=== PATIENT | male | born 1960 ===

== ENCOUNTER 2022-06-17 11:15 | Outpatient (RCR) | payer MEDICARE, SELFPAY ==
[2022-05-20 12:15] VITALS: BMI 20.3
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
--- NOTE | 2022-05-26 15:12 | P.PNPSP_ITS ---
Subjective Subjective Date of Service: 05/26/22 Reason For Visit: MDD,WILLA Medical Problems Affecting Mental Status: No Interim History: Continues with dysphoric mood. Reports feeling depressed, isolated, disconnected . Denies SI/HI. Stopped BuSpar after 1 pill. Medication Compliance: Intermittent Side effects from medications: No Attending Groups: Yes Review of Systems Acute medical concerns: No Medical Review of Systems: unchanged Review of Systems Review of Systems Yes all other systems are reviewed and are negative Constitutional: Reports no additional constitutional complaints Mental Status Exam Mental Status Exam Narrative: NAD. No SI/HI. No tics or tremors, no abnormal movements. Patient Appearance: Well Grooomed and Appropriate Patient Orientation: Person, Place, Time and Situation Level of Consciousness: Appropriate Patient Behavior: Appropriate and Good Eye Contact Mood Description: Depressed Affect Description: Depressed and Angry (irritable. ) Patient Cognition Impaired: No Ability to Follow Directions: Good Speech Pattern: Appropriate Memory Description: Intact Hallucinations: None Delusions: Not Present Thought Process: Intact Thought Content: positive for Intact Depressive Symptoms: Increased Anxiety, Loss of Int. in Activity, Feelings of Guilt, Unhappiness and Increased Fatigue Judgement: Fair Diagnostics Vital Signs (24Hr): BMI result Body Mass Index 20.3 Assessment & Plan Assessment & Plan (1) Major depressive disorder, recurrent severe without psychotic features: Status: Acute Code(s): F33.2 - Major depressive disorder, recurrent severe without psychotic features Assessment and Plan: Continues with dysphoric mood. Reports feeling depressed, isolated, disconnected . Denies SI/HI, no safety concerns. Reports he has tried several different antidepressants, unable to find 1 that was effective and did not cause side effects. Has been taking mirtazapine 7.5 mg at night for sleep. Zoloft had been decreased recently to 50 mg due to side effects of tremors. We discussed possible medication changes. He stated that he is already taking 3 medications, and he does not like to feel overmedicated. I suggested possibility of TMS. He stated that he is not interested in this. He sees outpatient psychiatrist tomorrow, and will discuss any possible medication changes / treatment options with her. (2) WILLA (generalized anxiety disorder): Status: Acute Code(s): F41.1 - Generalized anxiety disorder Assessment and Plan: Stopped BuSpar after 1 pill. Plan 1. Continue with current [facility] plan of care. 2. Continue with current medication regimen as prescribed by outpatient psychiatric provider. 3. Follow-up as per protocol. Certification I certify that partial hospital treatment is medically necessary due to the symptoms and problems resulting from the patient's mental illness and the failure to treat the patient at the partial hospital level of care would likely result in the patient requiring inpatient psychiatric care which could not be prevented at a less intensive level of care. I spent minutes with the patient and/or on the patient floor today, greater than?50% of which was spent counseling/coordinating care. Discharge Plan Discharge Attending provider: Kyrie Ho Medications: No Action multivitamin Tablet 1 tab PO DAILY buspirone [BuSpar] 5 mg Tablet 5 mg PO BID Label Comments: Patient reports his prescriber recently prescribed Buspar 5 mg BID. ascorbic acid (vitamin C) 1,000 mg Tablet 1,000 mg PO DAILY sertraline [Zoloft] 25 mg Tablet 50 mg PO DAILY Label Comments: Patient stated his prescriber recently decreased from 75 mg to 50 mg daily. lorazepam 1 mg Tablet 1 mg PO BID PRN (Reason: Anxiety) mirtazapine 7.5 mg Tablet 7.5 mg PO BEDTIME Label Comments: Patient reports he has not started new medication his prescriber prescribed. Picked up 05/19/22 melatonin 5 mg Tablet 5 mg PO BEDTIME PRN (Reason: Insomnia) omeprazole magnesium [Prilosec OTC] 20 mg Tablet,Delayed Release (Dr/Ec) 20 mg PO DAILY Label Comments: Patient reports his Tube Turner told him to take for 14 days d/t GI sxs. Telehealth Telehealth Location of provider rendering services: practice address Location of patient: address on file Patient Identification confirmed using: Name, : Yes Telehealth method: video Patient verbally consented to treatment: Yes Patient verbally consented to billing insurance company: Yes Patient informed of any privacy concerns related to visit: Yes Minutes spent on Phone/Video with Pt.: 15
--- NOTE | 2022-05-27 14:34 | PC.NURSE ---
Called to speak with Kenneth about his dc plans and if he has any needs that I can help him with. He did not answer and I left a message.
--- NOTE | 2022-06-03 14:17 | PC.NURSE ---
i spoke with the client about his schedule. He is be off monday 06/04 and his last day will be 06/09
--- NOTE | 2022-06-07 12:11 | PM.EVENT ---
Event Note Date of Service: 06/07/22 Event Note: Patient had scheduled appt to meet with this provider at 12:00 noon today. He did not login to appointment. PHP RN notified.
--- NOTE | 2022-06-11 10:41 | PC.NURSE ---
I spoke with the client this morning. He had a difficult day yesterday and did not sleep last night. He feels that he is too tired to attend and needs to go back to bed. He states that he will be in on Tuesday.
--- NOTE | 2022-06-15 14:57 | P.PNPSP_ITS ---
Subjective Subjective Date of Service: 06/15/22 Reason For Visit: MDD,WILLA Medical Problems Affecting Mental Status: No Interim History: Reports mood slightly improved. No SI, HI, no safety concerns. Started taking Celexa 4 days ago, no side effects reported. Utilizing lorazepam at night, helps with sleep. Medication Compliance: Yes Side effects from medications: No Attending Groups: Yes Review of Systems Acute medical concerns: No Medical Review of Systems: unchanged Review of Systems Review of Systems Yes all other systems are reviewed and are negative Constitutional: Reports no additional constitutional complaints Mental Status Exam Mental Status Exam Narrative: Appointment held via telephone due to technical difficulties (did not receive link). NAD. No SI/HI. Patient Appearance: Well Grooomed and Appropriate Patient Orientation: Person, Place, Time and Situation Level of Consciousness: Appropriate Patient Behavior: Appropriate Mood Description: Depressed Affect Description: Flat (voice flat) Patient Cognition Impaired: No Ability to Follow Directions: Good Speech Pattern: Appropriate and Monotone Memory Description: Intact Hallucinations: None Delusions: Not Present Thought Process: Intact Thought Content: positive for Intact Depressive Symptoms: Increased Anxiety, Difficulty Sleeping (varies by night), Loss of Int. in Activity and Unhappiness Judgement: Good Judgement and Insight: Improved judgment and insight. Diagnostics Vital Signs (24Hr): BMI result Body Mass Index 20.3 Assessment & Plan Assessment & Plan (1) Major depressive disorder, recurrent severe without psychotic features: Status: Acute Code(s): F33.2 - Major depressive disorder, recurrent severe without psychotic features Assessment and Plan: Feels slight improvement in mood since starting PHP. Has started taking Celexa 4 days ago, no side effects reported. No SI/HI, no safety concerns. Some difficulty with sleep, utilizing lorazepam at night, which helps. (2) Dependent personality disorder: Status: Acute Code(s): F60.7 - Dependent personality disorder Assessment and Plan: Plans to return home to his own apartment from girlfriend's home, states he is trying to do this. (3) WILLA (generalized anxiety disorder): Status: Acute Code(s): F41.1 - Generalized anxiety disorder Assessment and Plan: Utilizing p.r.n. lorazepam, with some positive affect. Has had a med change recently, has started Celexa. Plan 1. Continue with current PHP plan of care. 2. Continue with current medication regimen as prescribed by outpatient prov ider. 3. Follow-up as per protocol. Patient educated on: diagnosis, medication risk/benefits and therapeutic strategies Reason for contiued partial hosp. stay Substantial Risk for: inability to function Certification I certify that partial hospital treatment is medically necessary due to the symptoms and problems resulting from the patient's mental illness and the failure to treat the patient at the partial hospital level of care would likely result in the patient requiring inpatient psychiatric care which could not be prevented at a less intensive level of care. I spent minutes with the patient and/or on the patient floor today, greater than?50% of which was spent counseling/coordinating care. Discharge Plan Discharge Attending provider: Kyrie Ho Medications: No Action multivitamin Tablet 1 tab PO DAILY buspirone [BuSpar] 5 mg Tablet 5 mg PO BID Label Comments: Patient reports his prescriber recently prescribed Buspar 5 mg BID. ascorbic acid (vitamin C) 1,000 mg Tablet 1,000 mg PO DAILY sertraline [Zoloft] 25 mg Tablet 50 mg PO DAILY Label Comments: Patient stated his prescriber recently decreased from 75 mg to 50 mg daily. lorazepam 1 mg Tablet 1 mg PO BID PRN (Reason: Anxiety) mirtazapine 7.5 mg Tablet 7.5 mg PO BEDTIME Label Comments: Patient reports he has not started new medication his prescriber prescribed. Picked up 05/19/22 melatonin 5 mg Tablet 5 mg PO BEDTIME PRN (Reason: Insomnia) omeprazole magnesium [Prilosec OTC] 20 mg Tablet,Delayed Release (Dr/Ec) 20 mg PO DAILY Label Comments: Patient reports his [employer] Checker told him to take for 14 days d/t GI sxs. Telehealth Telehealth Location of provider rendering services: practice address Location of patient: address on file Patient Identification confirmed using: Name, : Yes Telehealth method: voice only Patient verbally consented to treatment: Yes Patient verbally consented to billing insurance company: Yes Patient informed of any privacy concerns related to visit: Yes Minutes spent on Phone/Video with Pt.: 15
--- NOTE | 2022-06-15 15:45 | PC.NURSE ---
I called the client and we spoke about his anxiety related to discharge from [facility]. We discuseed asking his therapist for increased sessions and attending DBT. I gave him the number for the DBT program at [facility]
--- NOTE | 2022-06-16 13:32 | PC.NURSE ---
I called and left a message for Yvette Lea therapist re discharge plans and requested a return call.
--- NOTE | 2022-06-17 14:46 | PC.NURSE ---
Discharge Note: Patient discharged today, 06/17/22 from [facility]. Discharge routine, patient states he is ready for discharge. Patient denies SI. Patient denies HI. Patient has completed 13 days at [facility] and is discharged to out-patient providers. Discharge medication list faxed to Keely DUENAS MA and to JOEL Leggett Green[place] MA. Patient isin agreement with discharge plan and states understanding of discharge medications.
== END 2022-06-17 23:59 | disposition home or self-care (01) ==
LOC: HO.PHPA 11:15
PROVIDERS: Visit Provider Psychiatry & Neurology Psychiatry
DX: F33.2 Major depressive disorder, recurrent severe without psychotic features (principal); F41.1 Generalized anxiety disorder; F60.7 Dependent personality disorder; F42.9 Obsessive-compulsive disorder, unspecified; Z79.899 Other long term (current) drug therapy
CPT/HCPCS: 90791; 90853